=== PATIENT | male | born 1950 | race Caucasian/White ===

== ENCOUNTER → 2018-02-15 08:59 | Outpatient (CLI) | payer OTHER, SELFPAY ==
[2018-02-15 13:01] LABS: Absolute Lymphocyte Count 1.38 X10^3/ul (0.83-4.51); Absolute Neutrophil Count 4.9 X10^3/uL (2.0-7.7); Basophil# 0.01 X10^3/uL; Basophil% 0.1 % (0-1); Eosinophil# 0.16 X10^3/uL; Eosinophils% 2.3 % (0-5); Hematocrit 44.1 % (40-54); Hemoglobin 15.1 g/dl (13.0-16.5); Lymphocyte # 1.38 X10^3/ul (4.0); Lymphocyte % 19.9 % (19-41); Mean Corp Hgb Conc 34.2 g/gl (32-36); Mean Corpuscular Hgb 32.7 pg (27.0-32.0); Mean Corpuscular Volume 95.5 fL (80-94); Mean Platelet Vol. 9.2 fl (6.2-12.0); Monocyte# 0.53 X10^3/uL; Monocyte% 7.6 % (0-10); Neutrophil # 4.85 X10^3/uL (2.7-7.7); Platelet Count 381 K/mm3 (150-450); RBC Distribution Width CV 15.3 % (11.6-14.6); RBC Distribution Width SD 52.7 fl (35.1-43.9); Red Blood Count 4.62 M/mm3 (4.6-6.2); White Blood Count 6.9 K/mm3 (4.4-11.0)
[2018-02-15 13:05] LABS: POSITIVE COUNT NO; POSITIVE DIFFERENTIAL NO; POSITIVE MORPHOLOGY NO
[2018-02-15 13:13] LABS: Vitamin B12 103 pg/mL (211-911); Vitamin D,25 Hydroxy 36.7 ng/mL (29.95-100.01)
[2018-02-15 13:17] LABS: ALB/GLOB Ratio 1.1 RATIO (0.9-2.4); AST(SGOT) 28 U/L (15-37); Alanine Aminotransfer ALT/SGPT 31 U/L (16-61); Alkaline Phosphatase 154 U/L (45-117); Anion Gap 7 (5-15); BUN 16 mg/dL (7-18); Chloride 108 mmol/L (98-107); Cholesterol 144 mg/dL (200); Creatinine, Serum 1.23 mg/dL (0.70-1.30); EST Glomerular Filtration Rate 62 mL/min (>60); Est Glom Filt Rate - Afr Amer 75 mL/min (>60); Globulin 3.8 g/dL (2.2-4.2); Glucose 92 mg/dL (74-106); High Density Lipoprotein 53 mg/dL; PSA,Total - Annual Screen 2.51 ng/mL (0.00-4.00); Potassium 4.2 mmol/L (3.5-5.1); Protein, Total 7.8 g/dL (6.4-8.2); Sodium Level 143 mmol/L (136-145); Thyroid Stim Hormone (TSH) 1.75 uIU/mL (0.358-3.74); Triglycerides 38 mg/dL; Very Low Density Lipoprotein 8 mg/dL (5-40)
== END ==
PROVIDERS: Visit Provider Family Medicine
DX: Z00.01 Encounter for general adult medical examination with abnormal findings (principal); I10 Essential (primary) hypertension; E53.8 Deficiency of other specified B group vitamins; Z79.01 Long term (current) use of anticoagulants; R53.83 Other fatigue; Z12.5 Encounter for screening for malignant neoplasm of prostate
CPT/HCPCS: 36415; 80053; 80061; 82306; 82607; 84153; 84443; 85025; G0103

== ENCOUNTER → 2018-02-19 13:21 | Outpatient (CLI) | payer OTHER, SELFPAY ==
--- NOTE | 2018-02-19 13:22 | STE_ITS ---
Reason For Study: AFIB/FLUTTER Stress Results Protocol: Stress Echocardiogram Maximum Predicted HR: 153 bpm Target HR: 130 bpm% Maximum Pr edicted HR: 89 % DurationHeart Rate Stage (mm:ss) (bpm) BPCom ment BASELINE 65 148/88 DILUTED DEFINITY USED- 3ML GIVEN SHAE PROTOCOL- STAGE 1 3:00 11 0 164/84 SHAE PROTOCOL- STAGE 2 3:00 13 3 168/90 SHAE PROTOCOL- STAGE 3 0:32 13 6 / SOB , LEG FATIGUE RECOVERY 90 152/84 Stress Duration: 6:32 mm:ss Maximum Stress HR: 136 bpm Baseline Echocardiogram Findings The estimated ejection fraction is 65 %. Stress Echo Wall motion Data Resting WMIntermediate WMStress WM Resting Wall Motion Wall Motion Stress No regional wall motion No regional wall motion abnormalities noted. abnormalities noted. EKG Data The baseline ECG demonstrates normal sinus rhythm with at rate of _ beats per minute. The patient exercised according to the regular Shae protocol for a total duration of 6:32. The maximum heart rate attained was 136 beats per minute. This was 88% of maximum predicted heart rate. The patient exercised into stage 3 of the Shae protocol. During stress, there were no ST or T wave changes noted to suggest ischemia. Interpretation Summary The estimated ejection fraction is 65 %. Normal, adequate, treadmill echocardiogram. Negative for ischemia by EKG and echocardiographic criteria. Appropriate blood pressure response to exercise. Average exercise capacity for age. Final LVEF is 75%. Decreased sensitivity due to poor echo windows requiring Definity enhancing agent. No anginal symptoms noted. Ordering Physician: Richy Carrasco Referring Physician: Richy Carrasco Performed By: Keren Perez, RDCS, RVT
== END ==
PROVIDERS: Family Provider Family Medicine; PCP Family Medicine; Visit Provider Internal Medicine Cardiovascular Disease
DX: I48.92 Unspecified atrial flutter (principal); I48.1 Persistent atrial fibrillation
CPT/HCPCS: 93017; 93350; Q9957; A4216; C8928

== ENCOUNTER 2018-04-01 06:12 | Day surgery (SDC) | payer OTHER, SELFPAY ==
[2018-04-01 06:53] VITALS: BP 140/84; PULSE 59; RESP 20; TEMP 36.3; O2SAT 100; BMI 29.9
--- NOTE | 2018-04-01 07:37 | PCM.HP.STD ---
Problem List (1) Screen for colon cancer Status: Acute History of Present Illness Date of Admission: 04/01/18 The patient is a 67 year old M who presents for a screening colonoscopy. Past Medical History Past Medical History (Chronic Problems): Chronic Problems (Last Reviewed 02/27/18 @ 09:21 by Richy Sánchez MD) Atrial flutter (Chronic) Hypertension (Chronic) Medical History: Medical History (Last Reviewed 04/01/18 @ 07:38 by Richy Sánchez MD) Atrial flutter (Chronic) I48.92 Hypertension (Chronic) I10 Persistent atrial fibrillation (Acute) I48.1 Carpal tunnel syndrome G56.00 Nodule of right lung R91.1 Allergies No Known Allergies Allergy (Verified 03/28/18 10:50) Home Medications: Ambulatory Orders Medication Instructions Recorded Metoprolol(XL)Succ [Toprol Xl 25 mg PO BID 05/07/17 (Beta Herminia)] apixaban 5 mg tablet 5 mg PO BID #60 tab 09/07/17 flecainide 100 mg tablet 100 mg PO BID #60 tab 09/07/17 losartan 25 mg tablet 25 mg PO QDAY #30 tab 11/01/17 Cyanocobalamin [Vitamin B12] 1,000 mcg PO DAILY@0800 03/28/18 Surgical History: Surgical History (Last Reviewed 04/01/18 @ 07:38 by Richy Sánchez MD) H/O: vasectomy Z98.52 History of cardioversion Z98.890 12/2014, 01/2015 History of left heart catheterization Onset Date: ~12/07/14 Z98.890 History of tonsillectomy Z98.890, Z90.89 Status post radiofrequency ablation (RFA) operation for arrhythmia Onset Date: ~05/14/15 Z98.890, Z86.79 RFA w/ PVI for Afib and RFA for Atrial Flutter right heel internal fixation Surgical History: - - 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 fib VTE Information - Inpt Only VTE Present on Admission: No VTE Mechan Device Prophylaxis: None VTE Pharm Prophylaxis ordered?: No Reason prophylaxis not ordered:: Treatment Not Indicated Patient Problems: Active and Suspected Problems (Last Reviewed 02/27/18 @ 09:21 by Richy Sánchez MD) Screen for colon cancer (Acute) - Physical Exam Lungs: Clear to auscultation Cardiovascular: Regular rate, Regular Rhythm, No murmurs Abdomen: Bowel Sounds Present, Soft, Non Tender, Non-Distended Vital Signs Temp Pulse Resp BP Pulse Ox 97.3 F L 59 L 20 H 140/84 H 100 04/01/18 06:53 04/01/18 06:53 04/01/18 06:53 04/01/18 06:53 04/01/18 06:53 Oxygen Delivery Method Room Air Weight: 209 lb 3.499 oz Body Mass Index (BMI) 29.9 Assessment/Plan All Active Problems (Last Reviewed 02/27/18 @ 09:21 by Richy Sánchez MD) Screen for colon cancer (Acute) Persistent atrial fibrillation (Acute) Atrial fibrillation with RVR (Resolved) Plan will be to perform a colonoscopy on him.
--- NOTE | 2018-04-01 07:39 | PCM.OPRPT ---
Problem List (1) Screen for colon cancer Status: Acute Report of Operation Date of Procedure: 04/01/18 Pre-Operative Diagnosis: Screening colonoscopy Post-Operative Diagnosis: Same Surgery/Procedure Performed:: Colonoscopy Type of Anesthesia:: MAC Description of Procedure: Patient was brought into the endoscopy suite. Placed in the left lateral decubitus position. Was given graded anesthesia. The scope was inserted into the rectum and directed through the sigmoid colon, descending colon, transverse colon, ascending colon, cecum, into the terminal ileum. Operative findings: 1. Terminal ileum: Normal appearance no mass lesions normal ileocecal valve. 2. Cecum colon: Normal appearance no mass lesions. 3. Ascending colon: Normal appearance no mass lesions. 4. transverse colon: Normal appearance no mass lesions. 5. Descending colon: Normal appearance no mass lesions. 6. Sigmoid colon: Normal appearance no mass lesions. 7. Rectum: Normal appearance no mass lesions retroflexion showed some internal hemorrhoids. Scope was withdrawn digital rectal exam was performed showing a smooth prostate and no masses within the anus. Patient will need another colonoscopy in 10 years. - Admit VTE Documentation VTE Present on Admission: No VTE Mechan Device Prophylaxis: None VTE Pharm Prophylaxis ordered?: No Reason prophylaxis not ordered:: Treatment Not Indicated
[2018-04-01 07:40] VITALS: BP 101/56; BP 140/84; BP 97/53; PULSE 53; PULSE 54; RESP 18; TEMP 36.6; O2SAT 96; O2SAT 97
[2018-04-01 07:50] VITALS: BP 119/56; BP 140/84; PULSE 51; RESP 18; O2SAT 97
[2018-04-01 07:56] VITALS: BP 113/99; BP 140/84; PULSE 56; RESP 18; TEMP 37.1; O2SAT 99
[2018-04-01 08:10] VITALS: BP 140/84
== END 2018-04-01 08:10 | disposition home or self-care (01) ==
LOC: EN 06:14 → AC 06:14
PROVIDERS: Family Provider Family Medicine; PCP Family Medicine; Visit Provider Surgery
PROC: 0DJD8ZZ Inspection of Lower Intestinal Tract, Via Natural or Artificial Opening Endoscopic (ICD-10-PCS; CPT 45378; principal; 2018-04-01 07:25)
DX: Z12.11 Encounter for screening for malignant neoplasm of colon (principal); K64.8 Other hemorrhoids; I10 Essential (primary) hypertension; Z79.899 Other long term (current) drug therapy; R91.1 Solitary pulmonary nodule; I48.1 Persistent atrial fibrillation; I48.92 Unspecified atrial flutter
CPT/HCPCS: 45378; J7120; J1610

== ENCOUNTER → 2020-01-14 11:51 | Outpatient (CLI) | payer OTHER, SELFPAY ==
[2020-01-14 11:51] VITALS: BMI 31.8
--- NOTE | 2020-01-14 11:53 | RAD_ITS ---
STUDY: X-RAY CHEST REASON FOR EXAM: Male, 69 years old. Vertigo for about 2 days now. Hx of a fib. TECHNIQUE: PA and lateral views of the chest. COMPARISON: 2016 FINDINGS: There are interstitial changes of the lungs. There is no demonstrated pleural abnormality. Normal size heart. Normal mediastinum and car. Normal visualized pulmonary arteries. Normal visualized aortic arch and descending thoracic aorta. There are diffuse degenerative changes of the visualized thoracic spine. Normal visualized ribs, clavicles, and shoulders. There is no demonstrated abnormality of the visualized soft tissue structures of the upper abdomen. RAD/Chest PA and Lateral IMPRESSION: Chronic interstitial changes, no superimposed acute pulmonary process Electronically Signed: Maurice Plascencia MD at 12:16 EDT , Service support ,
== END ==
PROVIDERS: PCP Family Medicine; Referring Provider Physician Assistant; Visit Provider Physician Assistant
DX: R42 Dizziness and giddiness (principal)
CPT/HCPCS: 71046

== ENCOUNTER → 2020-04-05 08:07 | Outpatient (CLI) | payer OTHER, SELFPAY ==
[2020-03-04 11:45] VITALS: BMI 31.5
--- NOTE | 2020-04-05 08:08 | ECHOD_ITS ---
Reason For Study: Afib, Aflutter Procedure This was a 2D Doppler, Color Flow transthoracic echocardiogram. Exam performed in department. Left Ventricle Normal LV size. Left ventricular systolic function is normal. The estimated ejection fraction is 60 %. Stage 3 diastolic dysfunction. No regional wall motion abnormalities noted. Right Ventricle Normal RV size. Normal systolic function. Atria Normal left atrium. Normal right atrium. Mitral Valve Normal mitral valve. Mild (1+) eccentric mitral valve insufficiency. Tricuspid Valve Normal tricuspid valve. Mild (1+) tricuspid valve insufficiency. Pulmonary artery systolic pressure is 38 mmHg. Aortic Valve Normal aortic valve. Trisinus/trileaflet aortic valve. Pulmonic Valve Normal pulmonic valve. Great Vessels Normal aortic root. The pulmonary artery is normal size. Normal inferior vena cava. Pericardium/Pleural No pericardial effusion. MMode/2D Measurements & Calculations LVIDd: 4.5 cm IVSd: 1.0 cm Ao root diam: 3.6 cm LVIDs: 2.3 cm LVPWd: 0.82 cm RVDd: 4.1 cm FS: 49.2 % LAV(MOD-bp): 30.3 ml LVAd ap4: 27.0 cm2 SV(MOD-sp4): 50.7 ml LAV(MOD-bp) Indexed: 14.0 ml/m2 EDV(MOD-sp4): 75.3 ml LAV(MOD-sp2): 23.3 ml EDV(sp4-el): 77.8 ml LAV(MOD-sp4): 34.9 ml LVAs ap4: 13.6 cm2 ESV(MOD-sp4): 24.6 ml ESV(sp4-el): 25.1 ml EF(MOD-sp4): 67.4 % EF(sp4-el): 67.8 % SV(sp4-el): 52.7 ml LA A4 area: 14.5 cm2 LA dimension(2D): 4.3 cm RA A4 area: 12.4 cm2 Doppler Measurements & Calculations MV E max jesse: 124.6 cm/sec Lat Peak E' Jesse: 9.2 cm/sec Med Peak E' Jesse: 8.7 cm/sec MV A max jesse: 47.2 cm/sec E/E' lat: 13.6 E/E' med: 14.3 MV E/A: 2.6 Ao V2 max: 151.4 cm/sec LV V1 max: 146.5 cm/sec PA V2 max: 110.7 cm/sec Ao max P.2 mmHg LV V1 max P.6 mmHg Ao V2 mean: 105.7 cm/sec Ao mean P.9 mmHg Ao V2 VTI: 34.1 cm PI end-d jesse: 120.4 cm/sec TR max jesse: 291.3 cm/sec TR max P.0 mmHg Interpretation Summary Normal LV size. Left ventricular systolic function is normal. The estimated ejection fraction is 60 %. Stage 3 diastolic dysfunction. Mild (1+) eccentric mitral valve insufficiency. Ordering Physician: Richy Carrasco Referring Physician: Leonardo Nolen Performed By: Justina Garcia, ESTHER, RVT
== END ==
PROVIDERS: PCP Family Medicine; Referring Provider Internal Medicine Cardiovascular Disease; Visit Provider Internal Medicine Cardiovascular Disease
DX: I48.0 Paroxysmal atrial fibrillation (principal); I10 Essential (primary) hypertension; I48.92 Unspecified atrial flutter
CPT/HCPCS: 93306

== ENCOUNTER → 2020-04-09 09:25 | Outpatient (CLI) | payer OTHER, SELFPAY ==
[2020-03-04 11:45] VITALS: BMI 31.5
--- NOTE | 2020-04-09 09:26 | STEWCON_ITS ---
Reason For Study: Atrial Fibrillation Stress Results Protocol: Carlos A Protocol WITH DEFINITY Maximum Predicted HR: 151 bpm Target HR: 128 bpm % Maximum Predicted HR: 87 % DurationHeart Rate Stage (mm:ss) (bpm) BP Comment Baseline 78 168/84No Chest Pain; 3 ML Diluted Definity Carlos A Protocol Stage I 3:00 109 154/82No Chest Pain; Mild Dyspnea Carlos A Protocol Stage II 3:00 121 174/68No Chest Pain; Mild Dyspnea Carlos A Protocol Stage III 0:45 131 / No Chest Pain; Mod Dyspnea Recovery 87 152/74No Chest Pain; No Dyspnea Stress Duration: 6:45 mm:ss Maximum Stress HR: 131 bpm METS: 9 Baseline Echocardiogram Findings Stress Echo Wall motion Data Resting WM Intermediate WM Stress WM Interpretation Summary Exercise stress echocardiogram. 69-year-old male with a history of hypertension and atrial fibrillation. Stress protocol: Resting EKG demonstrates normal sinus rhythm with a rate of 76 bpm normal intervals are noted resting blood pressure is 168/84 mmHg. The patient exercised according to regular Carlos A protocol for a total duration of 6 minutes and 45 seconds. The maximum heart rate attained was 131 bpm which was 86% of maximum predicted heart rate the maximum workload was 9.3 metabolic equivalents. The patient maintained sinus rhythm throughout the recording. At rest there were no ST or T wave changes noted to suggest ischemia at peak exercise upsloping ST changes only were noted we did not meet the criteria for ischemia. The test was terminated due to mild dyspnea. The peak blood pressure 174/68 mmHg which was an adequate response to exercise. No atrial fibrillation was noted. Stress protocol: Resting echocardiogram demonstrated preserved ejection fraction of 55% performed with Definity enhancement. There was thickening of all kincaid and reduction in left ventricular cavity size with peaking of ejection fraction estimated at 65%. No wall motion abnormalities were noted to suggest ischemia. Conclusion: Normal exercise stress echo with no evidence of ischemia at a moderate to high workload. Normal resting and stress echocardiographic images. Ordering Physician: Richy Carrasco Referring Physician: Harshad Yang Performed By: Justine Karimi RDCS
== END ==
PROVIDERS: PCP Family Medicine; Referring Provider Internal Medicine Cardiovascular Disease; Visit Provider Internal Medicine Cardiovascular Disease
DX: I48.0 Paroxysmal atrial fibrillation (principal); I48.92 Unspecified atrial flutter
CPT/HCPCS: 93017; 93350; Q9957; A4216; C8928